=== PATIENT | male | born 1955 | race Caucasian/White ===

== ENCOUNTER 2018-12-10 08:55 | Day surgery (SDC) | payer MEDICARE, OTHER ==
[~2018-12-10] VITALS: Ht 162.6 cm; Wt 60.1 kg
[2018-12-10 10:03] VITALS: Ht 162.6 cm; Wt 60.1 kg
[2018-12-10] MEDS ORDERED: INSULIN (10:08)
[2018-12-10] MEDS ORDERED: BP MEDS (10:08)
[2018-12-10] MEDS ORDERED: METFORMIN (10:08)
[2018-12-10 10:33] VITALS: BP 190/88; PULSE 57; RESP 15
--- NOTE | 2018-12-10 10:47 | PREAC ---
Date/Time of Note Date/Time of Note DATE: 12/10/18 TIME: 10:46 Anesthesia Eval and Record Evaluation Time Pre-Procedure Interview DATE: 12/10/18 TIME: 10:46 Age 63 Sex male NPO: 8 hrs Preoperative diagnosis screening Planned procedure colonoscopy Past Medical History Past Medical History: Includes Cardio: HTN Endo: Diabetes Infection(s): Hep B Surgery & Anesthesia Issues No known issue Meds Anticoagulation: No Beta Lennox within 24 hr: No Reason Beta Lennox not given: Pt. not on B-Lennox Reported Medications [Bp Meds] No Conflict Check 12/10/18 [Insulin] No Conflict Check 12/10/18 [Metformin] No Conflict Check 12/10/18 Meds reviewed: Yes Allergies Coded Allergies: No Known Allergy (Unverified , 12/10/18) Allergies Reviewed: Yes Labs/Studies Labs Reviewed: Other test: N/A Pre-procedure Exam Last vitals Vital Signs Date Temp Pulse Resp B/P (MAP) Pulse Ox O2 O2 Flow FiO2 Time Delivery Rate 12/10/18 98.1 57 15 190/88 99 Room Air 10:33 (122) Airway: Adequate mouth opening Mallampati: Mallampati II Teeth: Normal Lung: Normal Heart: Normal ASA Physical Status ASA physical status: 2 Emergency: None Planned Anesthetic General/MAC: MAC Pre-operative Attestations Prior to commencing anesthesia and surgery, the patient was re-evaluated, there was verification of: *The patient's identity *The results of appropriate recent lab work and preoperative vital signs *The above evaluation not changing prior to induction *Anesthetic plan, risk benefits, alternative and complications discussed with patient/family; questions answered; patient/family understands, accepts and wishes to proceed. MEGAN GARCIA Dec 10, 2018 10:47
[2018-12-10] MEDS ORDERED: PROPOFOL 20 ML ONE (10:53)
[2018-12-10] MEDS ORDERED: METOCLOPRAMIDE 10 MG INJ IV PRN (11:00)
[2018-12-10] MEDS ORDERED: LABETALOL HCL 20MG INJ IV PRN (11:00)
[2018-12-10] MEDS ORDERED: hydrALAzine 20 MG INJ IV PRN (11:00)
[2018-12-10] MEDS ORDERED: ONDANSETRON 4 MG INJ IV PRN (11:00)
[2018-12-10 12:03] VITALS: BP 179/99; RESP 20
== END 2018-12-10 15:35 | disposition home or self-care (01) ==
LOC: GIL 08:55
PROVIDERS: ATTEND Internal Medicine Gastroenterology
DX: Z12.11 Encounter for screening for malignant neoplasm of colon (principal); D12.8 Benign neoplasm of rectum; K57.30 Diverticulosis of large intestine without perforation or abscess without bleeding; E11.9 Type 2 diabetes mellitus without complications; I10 Essential (primary) hypertension
CPT/HCPCS: 82962; 88305